=== PATIENT | female | born 1960 | race Caucasian/White ===

== ENCOUNTER 2025-02-25 17:52 | Inpatient (IN) | payer MEDICARE, OTHER ==
[~2025-02-25] VITALS: Ht 147.3 cm; Wt 71.7 kg
[2025-02-25] MEDS ORDERED: FLUO20CA42 PO (18:10)
[2025-02-25] MEDS ORDERED: OLAN5TAB70 PO (18:10)
[2025-02-25] MEDS ORDERED: PROP10TA68 PO (18:10)
[2025-02-25] MEDS ORDERED: MAG HYDROX/AL HYDROX/SIMETH 30 ML LIQUID UDC PO PRN (19:45)
[2025-02-25] MEDS ORDERED: MAGNESIUM HYDROXIDE 30 ML LIQUID UDC PO PRN (19:45)
[2025-02-25] MEDS ORDERED: TEMAZEPAM 7.5 MG CAPSULE PO PRN (19:45)
[2025-02-25 20:00] VITALS: BP 147/91; TEMP 98.1; O2SAT 97
[2025-02-25] MEDS: BLOOD SUGAR DIAGNOSTIC 1 EACH STRIP VI ONE (20:43)
[2025-02-25] MEDS: LORAZEPAM 1 MG TABLET PO PRN (21:38)
[2025-02-25] MEDS ORDERED: PROPRANOLOL HCL 10 MG TABLET ONE (22:26)
[2025-02-25] MEDS: PROPRANOLOL HCL 10 MG TABLET PO ONE (23:05)
[2025-02-26 07:53] VITALS: BP 131/80; TEMP 98; O2SAT 96
[2025-02-26 08:03] LABS: GLUCOSE FASTING 127.0 mg/dL (70-115)
[2025-02-26] MEDS: PROPRANOLOL HCL 10 MG TABLET PO SCH (09:31)
[2025-02-26 15:28] VITALS: BP 139/86; TEMP 98; O2SAT 96
[2025-02-26 19:58] VITALS: BP 145/78; TEMP 98.1; O2SAT 96
[2025-02-26] MEDS: TEMAZEPAM 7.5 MG CAPSULE PO PRN (21:42)
[2025-02-27 08:03] VITALS: BP 139/94; TEMP 98; O2SAT 96
[2025-02-27] MEDS: SERTRALINE HCL 50 MG TABLET PO SCH (10:50)
[2025-02-27 15:36] VITALS: BP 160/83; TEMP 98; O2SAT 96
[2025-02-27 20:06] VITALS: BP 145/80; TEMP 98.1; O2SAT 98
[2025-02-27] MEDS: LORAZEPAM 1 MG TABLET PO PRN (21:04)
[2025-02-28 08:04] VITALS: BP 135/98; TEMP 98.4; O2SAT 100
[2025-02-28 16:26] VITALS: BP 148/76; TEMP 98.4; O2SAT 100
[2025-02-28 19:51] VITALS: BP 148/80; TEMP 97.7; O2SAT 95
[2025-03-01 08:04] VITALS: BP 130/78; TEMP 98.4; O2SAT 100
[2025-03-01 16:13] VITALS: BP 127/82; TEMP 98.3; O2SAT 100
[2025-03-01] MEDS: METFORMIN HCL 500 MG TABLET PO SCH (17:12)
[2025-03-01 19:51] VITALS: BP 105/58; TEMP 98.2; O2SAT 99
[2025-03-02 08:10] VITALS: BP 170/81; TEMP 98.2; O2SAT 97
[2025-03-02] MEDS: SERTRALINE HCL 50 MG TABLET PO SCH (08:24)
[2025-03-02] MEDS: GLUCERNA SHAKE 237 ML CAN PO SCH (16:09)
[2025-03-02 16:30] VITALS: BP 139/85; TEMP 97.7; O2SAT 99
[2025-03-02 19:40] VITALS: BP 143/73; TEMP 98.3; O2SAT 96
[2025-03-03 08:11] VITALS: BP 124/70; TEMP 97.8; O2SAT 96
[2025-03-03 16:00] VITALS: BP 148/83; TEMP 98.4; O2SAT 97
[2025-03-03 19:57] VITALS: BP 171/73; TEMP 98.2; O2SAT 97
[2025-03-03] MEDS ORDERED: CLONIDINE HCL 0.1 MG TABLET PO PRN (20:15)
[2025-03-03] MEDS: CLONIDINE HCL 0.1 MG TABLET PO PRN (20:40)
[2025-03-03 21:40] VITALS: BP 150/72; TEMP 98.5; O2SAT 98
[2025-03-04 08:06] VITALS: BP 151/89; TEMP 98; O2SAT 98
[2025-03-04 16:19] VITALS: BP 166/84; TEMP 98; O2SAT 96
[2025-03-04 19:51] VITALS: BP 135/72; TEMP 98.1; O2SAT 98
[2025-03-05] MEDS: SERTRALINE HCL 50 MG TABLET PO SCH (08:27)
[2025-03-05 08:49] VITALS: BP 94/64; TEMP 98; O2SAT 98
[2025-03-05 15:27] VITALS: BP 130/64; TEMP 98; O2SAT 96
[2025-03-05 20:00] VITALS: BP 170/90; TEMP 98
[2025-03-06 09:03] VITALS: BP 139/73; TEMP 98; O2SAT 96
[2025-03-06 16:15] VITALS: BP 144/86; TEMP 98; O2SAT 96
[2025-03-06 20:00] VITALS: BP 132/96; O2SAT 97
[2025-03-06] MEDS: ACETAMINOPHEN 325 MG TABLET PO PRN (21:17)
[2025-03-07] VITALS (7 sets, daily range): BP systolic 114–183; BP diastolic 83–91; TEMP 98–98.1; O2SAT 96–99
[2025-03-07] MEDS: NIFEdipine XL 30 MG TABSR PO SCH (18:38)
[2025-03-08 09:54] VITALS: BP 106/61; TEMP 98.1; O2SAT 98
[2025-03-08 16:24] VITALS: BP 118/57; TEMP 98.1; O2SAT 98
[2025-03-08 19:56] VITALS: BP 172/90; TEMP 98.1; O2SAT 96
[2025-03-08 22:12] VITALS: BP 152/86; O2SAT 97
[2025-03-09 05:51] VITALS: BP 177/90
[2025-03-09 08:36] VITALS: BP 145/95; TEMP 98.1; O2SAT 98
[2025-03-09] MEDS: SERTRALINE HCL 50 MG TABLET PO SCH (12:11)
[2025-03-09 16:24] VITALS: BP 138/91; TEMP 98.1; O2SAT 98
[2025-03-09 20:05] VITALS: BP 120/65; TEMP 98.1; O2SAT 98
[2025-03-10 08:00] VITALS: BP 158/86; TEMP 98.2; O2SAT 97
[2025-03-10 15:38] VITALS: BP 139/67; TEMP 98; O2SAT 97
[2025-03-10 20:00] VITALS: BP 126/75; TEMP 98.5; O2SAT 97
[2025-03-11 08:22] VITALS: BP 154/78; TEMP 98.2; O2SAT 98
[2025-03-11 16:14] VITALS: BP 172/82; TEMP 98.2; O2SAT 94
== END 2025-03-11 16:00 | DRG 885 ==
LOC: ER 17:55 → GPS 18:32
PROVIDERS: ADMIT Psychiatry & Neurology Psychosomatic Medicine; ATTEND Nurse Practitioner Acute Care
DX: F39 Unspecified mood [affective] disorder (principal); F32.3 Major depressive disorder, single episode, severe with psychotic features; R45.851 Suicidal ideations; D68.59 Other primary thrombophilia; F41.9 Anxiety disorder, unspecified; E78.5 Hyperlipidemia, unspecified; E66.01 Morbid (severe) obesity due to excess calories; Z68.33 Body mass index [BMI] 33.0-33.9, adult; Z91.51 Personal history of suicidal behavior; I10 Essential (primary) hypertension; Z79.899 Other long term (current) drug therapy; E11.9 Type 2 diabetes mellitus without complications
CPT/HCPCS: 36415; 70450; 83921; 84443; 93307

== ENCOUNTER 2025-04-15 14:55 | Inpatient (IN) | payer MEDICARE, OTHER ==
[~2025-04-15] VITALS: Ht 147.3 cm; Wt 69.4 kg
[~2025-04-15 14:55] MED LIST: PROP10TA68 PO
[2025-04-15 17:26] LABS: *BILIRUBIN,URIN NEGATIVE (NEGATIVE); *BLOOD, URINE NEGATIVE (NEGATIVE); *CLARITY,URINE CLEAR (CLEAR); *COLOR,URINE YELLOW (YELLOW); *KETONES,URINE TRACE (NEGATIVE); *PROTEIN,URINE NEGATIVE (NEGATIVE); *UROBILINOGEN,URINE 0.2 E.U./dl (NORMAL); LEUKOCYTE ESTERASE ,URINE 2+ (NEGATIVE); NITRITE, URINE NEGATIVE (NEGATIVE); UGLUCOSE NEGATIVE (NEGATIVE)
[2025-04-15 17:34] LABS: SQUAMOUS EPITHELIAL CELL,UR FEW /HPF (NONE SEEN)
[2025-04-15 17:37] LABS: *AMPHETAMINE, URINE NEGATIVE (NEGATIVE); *BARBITURATE, URINE NEGATIVE (NEGATIVE); *BENZODIAZEPINE, URINE NEGATIVE (NEGATIVE); *CANNABINOID, URINE NEGATIVE (NEGATIVE); *COCCAINE, URINE NEGATIVE (NEGATIVE); *OPIATE, URINE NEGATIVE (NEGATIVE); *PHENCYCLIDINE SCREEN,URINE NEGATIVE (NEGATIVE); FENTANYL, URINE NEGATIVE (NEGATIVE)
[2025-04-15 18:20] VITALS: BP 144/86
[2025-04-15 20:00] VITALS: BP 118/56; TEMP 97.4; O2SAT 99
[2025-04-15] MEDS ORDERED: MAG HYDROX/AL HYDROX/SIMETH 30 ML LIQUID UDC PO PRN (21:45)
[2025-04-15] MEDS ORDERED: MAGNESIUM HYDROXIDE 30 ML LIQUID UDC PO PRN (21:45)
[2025-04-15] MEDS ORDERED: LORAZEPAM 0.5 MG TABLET PO PRN (21:45)
[2025-04-15] MEDS ORDERED: ACETAMINOPHEN 325 MG TABLET PO PRN (21:45)
[2025-04-15] MEDS ORDERED: TEMAZEPAM 7.5 MG CAPSULE PO PRN (21:45)
[2025-04-15] MEDS ORDERED: NIFE-35 PO (23:28)
[2025-04-15] MEDS ORDERED: CLON0.1T PO (23:28)
[2025-04-15] MEDS ORDERED: DIVA125C2 PO (23:28)
[2025-04-15] MEDS ORDERED: MULT-1045 PO (23:28)
[2025-04-15] MEDS ORDERED: METF-440 PO (23:28)
[2025-04-15] MEDS ORDERED: DOCU100C36 PO (23:28)
[2025-04-16 07:53] VITALS: BP 137/85; TEMP 98; O2SAT 99
[2025-04-16] MEDS ORDERED: MAGN400O6 PO (10:06)
[2025-04-16] MEDS ORDERED: ACET325T53 PO (10:08)
[2025-04-16] MEDS ORDERED: MAGNESIUM HYDROXIDE 30 ML LIQUID UDC PO PRN (14:15)
[2025-04-16] MEDS ORDERED: ACETAMINOPHEN 325 MG TABLET-SA PATIENTS-PAIN ONLY PO PRN (14:15)
[2025-04-16] MEDS ORDERED: CLONIDINE HCL 0.1 MG TABLET PO PRN (14:15)
[2025-04-16 15:39] VITALS: BP 126/75; TEMP 98; O2SAT 99
[2025-04-16] MEDS: METFORMIN HCL 500 MG TABLET PO SCH (18:11)
[2025-04-16] MEDS: DIVALPROEX 125 MG TABLET.DR PO SCH (18:11)
[2025-04-16 19:55] VITALS: BP 139/84; TEMP 98.1; O2SAT 99
[2025-04-16] MEDS: OLANZAPINE 2.5 MG TABLET PO SCH (22:03)
[2025-04-16] MEDS: PROPRANOLOL HCL 10 MG TABLET PO SCH (22:03)
[2025-04-17 08:25] VITALS: BP 120/74; TEMP 98.2; O2SAT 99
[2025-04-17] MEDS: MULTIVITAMINS,THERAPEUTIC TABLET PO SCH (08:34)
[2025-04-17] MEDS: DOCUSATE SODIUM 100 MG CAPSULE PO SCH (08:34)
[2025-04-17] MEDS: NIFEdipine XL 30 MG TABSR PO SCH (08:35)
[2025-04-17 15:37] VITALS: BP 136/78; TEMP 98; O2SAT 99
[2025-04-17 19:32] VITALS: BP 134/86; TEMP 98; O2SAT 99
[2025-04-18 08:19] VITALS: BP 152/97; TEMP 98.2; O2SAT 99
[2025-04-18 16:33] VITALS: BP 112/65; TEMP 98.2; O2SAT 99
[2025-04-18 20:00] VITALS: BP 107/64; TEMP 97.6; O2SAT 95
[2025-04-19 08:04] VITALS: BP 104/59; TEMP 98.2; O2SAT 99
[2025-04-19] MEDS: LORAZEPAM 0.5 MG TABLET PO PRN (11:36)
[2025-04-19 16:23] VITALS: BP 102/56; TEMP 98.2; O2SAT 99
[2025-04-19 19:52] VITALS: BP 101/73; TEMP 98.1; O2SAT 95
[2025-04-20 08:04] VITALS: BP 105/62; TEMP 98.2; O2SAT 99
[2025-04-20 16:13] VITALS: BP 101/68; TEMP 98.2; O2SAT 99
[2025-04-20 19:50] VITALS: BP 112/66; TEMP 97.9; O2SAT 98
[2025-04-21 07:42] VITALS: BP 108/66; TEMP 97.4; O2SAT 97
[2025-04-21] MEDS: GLUCERNA SHAKE 237 ML CAN PO SCH (08:43)
[2025-04-21 16:21] VITALS: BP 111/64; TEMP 97.4; O2SAT 97
[2025-04-21] MEDS: DIVALPROEX 250 MG TABLET.DR PO SCH (17:16)
[2025-04-21 19:41] VITALS: BP 100/61; TEMP 97.8; O2SAT 95
[2025-04-22 08:24] VITALS: BP 123/76; TEMP 98; O2SAT 98
[2025-04-22 15:40] VITALS: BP 98/62; TEMP 98; O2SAT 98
[2025-04-22 20:00] VITALS: BP 103/60; TEMP 98.1; O2SAT 94
[2025-04-22 20:06] LABS: *BILIRUBIN,URIN NEGATIVE (NEGATIVE); *BLOOD, URINE 1+ (NEGATIVE); *CLARITY,URINE CLEAR (CLEAR); *KETONES,URINE NEGATIVE (NEGATIVE); *PROTEIN,URINE NEGATIVE (NEGATIVE); *UROBILINOGEN,URINE 0.2 E.U./dl (NORMAL); LEUKOCYTE ESTERASE ,URINE 2+ (NEGATIVE); NITRITE, URINE NEGATIVE (NEGATIVE); UGLUCOSE NEGATIVE (NEGATIVE)
[2025-04-22 20:11] LABS: *COLOR,URINE STRAW (YELLOW)
[2025-04-22 20:23] LABS: SQUAMOUS EPITHELIAL CELL,UR FEW /HPF (NONE SEEN)
[2025-04-23 08:17] VITALS: BP 127/68; TEMP 98; O2SAT 98
[2025-04-23] MEDS: NITROFURANTOIN/NITROFURAN MAC 100 MG CAPSULE PO SCH (13:16)
[2025-04-23 16:07] VITALS: BP 106/55; TEMP 98; O2SAT 98
[2025-04-23 19:54] VITALS: BP 95/54; TEMP 97.9; O2SAT 93
[2025-04-24 09:17] VITALS: BP 91/44; TEMP 98.4; O2SAT 95
[2025-04-24 14:52] VITALS: BP 91/51; TEMP 98.7; O2SAT 95
[2025-04-24 20:00] VITALS: BP_SYST 118; BP_SYST 159; BP_DIAS 61; BP_DIAS 65; TEMP 97.7; TEMP 98.5; O2SAT 93; O2SAT 98
[2025-04-24] MEDS: TEMAZEPAM 7.5 MG CAPSULE PO PRN (21:24)
[2025-04-25 09:32] VITALS: BP 114/65; TEMP 98.4; O2SAT 95
[2025-04-25 16:48] VITALS: BP 109/65; TEMP 98.4; O2SAT 95
[2025-04-25 19:53] VITALS: BP 91/60; TEMP 97.9; O2SAT 98
[2025-04-26 08:28] VITALS: BP 105/71; TEMP 98.4; O2SAT 95
[2025-04-26 16:40] VITALS: BP 111/78; TEMP 98.4; O2SAT 95
[2025-04-26 20:00] VITALS: BP 102/62; TEMP 98.5; O2SAT 97
[2025-04-27 08:08] VITALS: BP 98/59; TEMP 98.4; O2SAT 95
[2025-04-27 08:28] VITALS: BP 98/59
== END 2025-04-27 11:15 | DRG 885 ==
LOC: ER 14:55 → GPS 18:16
PROVIDERS: ADMIT Psychiatry & Neurology Psychosomatic Medicine
DX: F29 Unspecified psychosis not due to a substance or known physiological condition (principal); F02.82 Dementia in other diseases classified elsewhere, unspecified severity, with psychotic disturbance; F02.83 Dementia in other diseases classified elsewhere, unspecified severity, with mood disturbance; D68.59 Other primary thrombophilia; R45.851 Suicidal ideations; N39.0 Urinary tract infection, site not specified; D84.9 Immunodeficiency, unspecified; G31.09 Other frontotemporal neurocognitive disorder; E11.42 Type 2 diabetes mellitus with diabetic polyneuropathy; Z91.51 Personal history of suicidal behavior; Z79.84 Long term (current) use of oral hypoglycemic drugs; Z79.899 Other long term (current) drug therapy; E66.9 Obesity, unspecified; Z68.33 Body mass index [BMI] 33.0-33.9, adult; E78.5 Hyperlipidemia, unspecified; I10 Essential (primary) hypertension
CPT/HCPCS: 36415; 80164; 87086; 93005; J3490